=== PATIENT | male | born 1985 | race African-American/Black ===

== ENCOUNTER 2019-04-02 11:21 | Emergency (ER) | payer OTHER ==
[~2019-04-02] VITALS: Ht 180.3 cm; Wt 75.0 kg
[2019-04-02 11:25] VITALS: BP 126/80; Ht 180.3 cm; Wt 75.0 kg
== END 2019-04-02 13:30 | disposition home or self-care (01) ==
LOC: ED 11:21
DX: K52.9 Noninfective gastroenteritis and colitis, unspecified (principal); K64.4 Residual hemorrhoidal skin tags